=== PATIENT | male | born 1960 | race Caucasian/White ===

== ENCOUNTER 2020-01-21 07:52 | Inpatient (IN) | payer OTHER, SELFPAY ==
[~2020-01-21] VITALS: Ht 177.8 cm; Wt 84.5 kg
[2020-01-21 07:52] VITALS: BP_SYST 178
--- NOTE | 2020-01-21 07:52 | NUR ---
Patient triaged and placed in waiting room. VSS and patient appears in no acute distress at this time. Accompanied by SELF, awaiting available bed, and MD notified of need for MSE.
--- NOTE | 2020-01-21 08:02 | NUR ---
BROUGHT BACK TO BED #3 AND TRIAGED. REPORT GIVEN TO DEE
--- NOTE | 2020-01-21 08:05 | NUR ---
Patient arrived in the ED c/o naveen-umbilical pain with nausea that started 3 days ago. Denied any chest pain or shortness of breath. Denied any fevers, chills, or vomiting. Patient is alert and oriented x4, respirations even and unlabored, speaking in full sentences, and ambulating with a steady gait. VSS, pain level 3/10. Informed of the approximate wait time. Instructed to notify ED staff for any changes in condition or worsening of symptoms while waiting to be seen by an ED provider. Patient verbalized understanding.
[2020-01-21] MEDS ORDERED: NACL 0.9% 1,000 ML IV ONE (08:15)
--- NOTE | 2020-01-21 08:15 | NUR ---
ER Dr. Pederson at bedside examining patient.
--- NOTE | 2020-01-21 08:18 | NUR ---
pyrotechnics press tender at bedside collecting blood specimen as ordered by Dr. Pederson. Patient tolerated the procedure well.
--- NOTE | 2020-01-21 08:22 | NUR ---
X-ray done at bedside as ordered by Dr. Pederson. Patient tolerated the procedure well.
--- NOTE | 2020-01-21 08:31 | NUR ---
Patient ambulated to the bathroom with a steady gait. Urine specimen collected as ordered by Dr. Pederson.
[2020-01-21 08:32] LABS: BASOPHILS # (AUTO) 0.2 K/uL (0.0-0.2); BASOPHILS % (AUTO) 0.8 % (0.0-2.0); EOSINOPHILS % (AUTO) 0.1 % (0.0-4.0); HEMATOCRIT 48.4 % (36-54); HEMOGLOBIN 16.1 g/dL (14.0-18.0); LYMPHOCYTES # (AUTO) 2.3 K/uL (1.0-5.5); LYMPHOCYTES % (AUTO) 11.3 % (20.5-51.5); MEAN CORPUSCULAR HEMOGLOBIN 30 pg (27-31); MEAN CORPUSCULAR HGB CONC 33 % (32-36); MEAN CORPUSCULAR VOLUME 91 fL (79.0-98.0); MONOCYTES # (AUTO) 1.7 K/uL (0.0-1.0); MONOCYTES % (AUTO) 8.2 % (1.7-9.3); NEUTROPHILS # (AUTO) 16.2 K/uL (1.8-7.7); PLATELET COUNT (AUTO) 250 K/uL (130-430); RED BLOOD CELL COUNT(AUTO) 5.35 MIL/uL (4.2-6.2); RED CELL DISTRIBUTION WIDTH 14.3 % (9.0-15.0); WHITE BLOOD COUNT (AUTO) 20.3 K/uL (4.8-10.8)
[2020-01-21 08:48] LABS: CALCIUM 9.8 mg/dL (8.4-11.0); CREATININE 1.07 mg/dL (0.55-1.30); POTASSIUM 4.4 mmol/L (3.5-5.1)
[2020-01-21 09:01] LABS: BILIRUBIN,URINE NEGATIVE (NEGATIVE); BLOOD, URINE NEGATIVE (NEGATIVE); CLARITY/URINE CLEAR (CLEAR); COLOR,URINE YELLOW (YELLOW); GLUCOSE,URINE NEGATIVE (NEGATIVE); KETONES,URINE NEGATIVE (NEGATIVE); LEUKOCYTE ESTERASE ,URINE NEGATIVE (NEGATIVE); NITRITE, URINE NEGATIVE (NEGATIVE); PH,URINE 5.5 (5.0-8.0); PROTEIN URINE NEGATIVE (NEGATIVE); UROBILINOGEN,URINE 0.2 (0.2-1.0)
[2020-01-21 09:01] LABS: NEUTROPHILS % (AUTO) 79.6 % (40.0-70.0)
[2020-01-21 09:03] LABS: ALBUMIN 4.4 g/dL (3.4-4.8); TOTAL BILIRUBIN 1.2 mg/dL (0.0-1.0)
[2020-01-21] MEDS ORDERED: metroNIDAZOLE 500 mg/NS 100 ML IV ONE (09:45)
[2020-01-21] MEDS ORDERED: cefTRIAXone 1 GM IVPB PREMIX 50 ML IV ONE (09:45)
--- NOTE | 2020-01-21 09:51 | NUR ---
ECG done at bedside as ordered by Dr. Pederson. Patient tolerated the procedure well. ER Physician given copy of EKG for review.
[2020-01-21] MEDS: D5/0.45 NS 1,000 ML IV SCH ×2 (12:15→21:24)
--- NOTE | 2020-01-21 13:44 | NUR ---
Report given to Dedra.
--- NOTE | 2020-01-21 13:48 | NUR ---
Patient will be admitted to care of Dr. Gay. Admitted to MS unit. Will go to room 116A. Belongings list completed. Complete and up to date summary report printed. SBAR report to be given at bedside with opportunity for questions.
--- NOTE | 2020-01-21 14:08 | NUR ---
CONSULTATION PAGED/CALLED Reason for Consultation: [] DIVERTICULITIS Person Who was Notified: [] RAS Consulting Physician: [] DR NUNEZ MCAT INSTRUCTOR FOR DR OBRIEN Hurricane Tracker Specialty: [] GI Ordering Physician: [] JUANA MOONEY
[2020-01-21 14:15] VITALS: BP_SYST 151
[2020-01-21] MEDS: metroNIDAZOLE 500 mg/NS 100 ML IV SCH ×2 (14:53→21:24)
[2020-01-21 15:18] VITALS: BP_SYST 139
--- NOTE | 2020-01-21 15:29 | NUR ---
This freelance copywriter received patient at 1420 from ER chief complaint abdominal pain admitting dx Diverticulitis currently has no diet patient stated MD wants him to be NPO for 24hrs will follow up and clairify diet order. Patient A&Ox4 no c/o pain has no past hx of medical diagnosis, currently running on D5W 1/2 NS @100ml/hr and IV antibiotics. Skin assessment showed no sign of skin breakdown or tears has an 18g to left AC patent. Patient brought with him a pair of clothes , black cell phone with white security monitor and pair of black glasses. patient denies pain at the moment currently in bed watching tv with call light in reach will continue to monitor.
--- NOTE | 2020-01-21 16:11 | NUR ---
ATTENDING MD DR FRIAS WAS CALLED, RE: DIET ORDER AND ETC.
[2020-01-21] MEDS ORDERED: MORPHINE 2 MG/ML INJ. SYRINGE IVP PRN (16:30)
[2020-01-21] MEDS ORDERED: NALOXONE HCL 0.4 MG/ML AMP (NARCAN) IVP PRN (16:30)
--- NOTE | 2020-01-21 16:51 | NUR ---
This medical technical writer called in regards to patients diet and pain medications. MD ordered full liquid diet until GI consult , Labs for 01/22/20 CBC w/diff , CMP, MAG, TSH, LIPID PANEL , Morphine 1mg IVPB PRN Q8H, and solu-mederol 40mg IV Q8H. came to do GI consult he ordered to keep full liquid diet see how he tolerates it tonight then advance to soft diet for breakfast.
--- NOTE | 2020-01-21 18:43 | NUR ---
Called MD to clarify steroid order. MD KC order of solu-mederol.
--- NOTE | 2020-01-21 19:38 | NUR ---
Initial note: Received report from dayshift RN. Patient is awake in bed watching TV. No acute distress. Even and unlabored breathing, tolerating room air. IV site patent and benign, receiving IV fluids per MD order. Patient ate 75% of dinner, no complaints of abdominal pain or nausea. Patient states he has slight abdominal discomfort. Call light is with patient. Safety, fall precautions in place. Will continue with plan of care.
[2020-01-21 20:00] VITALS: BP_SYST 140
[2020-01-21] MEDS ORDERED: methylPREDNISolone SOD SUCC 40 MG/ML VIAL IVP SCH (22:00)
--- NOTE | 2020-01-21 22:45 | NUR ---
Rounds: Patient is resting in bed, does not show any acute distress. Respirations are even, unlabored on room air. IV fluids infusing per MD order, no infiltration noted. Call light is with patient. Will continue to monitor.
[2020-01-21] MEDS ORDERED: cloNIDine HCL 0.1 MG TABLET PO PRN (23:00)
[2020-01-21] MEDS: LEVOFLOXACIN 500 MG/D5W 100 ML IV SCH (23:25)
[2020-01-21] MEDS ORDERED: LEVOFLOXACIN 500 MG/D5W 100 ML IV ONE (23:32)
[2020-01-22 00:05] VITALS: BP_SYST 117
--- NOTE | 2020-01-22 00:16 | NUR ---
Rounds: Patient is in bed sleeping. No s/s of acute distress. Tolerating room air. Even and unlabored breathing. IV site receiving IV fluids shows no infiltration. Call light is with patient. Will continue monitoring.
--- NOTE | 2020-01-22 03:21 | NUR ---
Rounds: Patient is asleep. No acute distress. Respirations are even and unlabored on room air. IV fluids infusing well, no infiltration. Call light with patient. Will continue to monitor.
[2020-01-22] MEDS: D5/0.45 NS 1,000 ML IV SCH ×2 (05:09→17:33)
[2020-01-22] MEDS: metroNIDAZOLE 500 mg/NS 100 ML IV SCH ×3 (05:09→21:27)
--- NOTE | 2020-01-22 06:11 | NUR ---
Closing note: Patient is resting comfortably in bed. No acute distress. Even, unlabored breathing. Tolerating room air. IV fluids infusing well. IV site benign and intact. All needs met. Safety, fall precautions observed. Will endorse care to dayshift RN.
[2020-01-22 06:33] LABS: BASOPHILS % (AUTO) 0.4 % (0.0-2.0); EOSINOPHILS # (AUTO) 0.1 K/uL (0.0-0.4); EOSINOPHILS % (AUTO) 0.6 % (0.0-4.0); HEMATOCRIT 40.8 % (36-54); HEMOGLOBIN 13.7 g/dL (14.0-18.0); LYMPHOCYTES # (AUTO) 1.9 K/uL (1.0-5.5); LYMPHOCYTES % (AUTO) 21.8 % (20.5-51.5); MEAN CORPUSCULAR HEMOGLOBIN 30 pg (27-31); MEAN CORPUSCULAR HGB CONC 34 % (32-36); MEAN CORPUSCULAR VOLUME 90 fL (79.0-98.0); MONOCYTES # (AUTO) 1.2 K/uL (0.0-1.0); MONOCYTES % (AUTO) 14.4 % (1.7-9.3); NEUTROPHILS # (AUTO) 5.4 K/uL (1.8-7.7); NEUTROPHILS % (AUTO) 62.8 % (40.0-70.0); PLATELET COUNT (AUTO) 183 K/uL (130-430); RED BLOOD CELL COUNT(AUTO) 4.52 MIL/uL (4.2-6.2); RED CELL DISTRIBUTION WIDTH 14.8 % (9.0-15.0); WHITE BLOOD COUNT (AUTO) 8.6 K/uL (4.8-10.8)
--- NOTE | 2020-01-22 07:15 | NUR ---
opening note received sbar from night RN, patient in bed, respirations even, non labored, bed in low and locked position, call light within reach, bed alarm on
[2020-01-22 08:00] VITALS: BP_SYST 145
--- NOTE | 2020-01-22 08:00 | NUR ---
nurse note obtained vs, patient in bed, respirations even, non labored, bed in low and locked position, denies any pain or discomfort. Administered medication
--- NOTE | 2020-01-22 08:20 | NUR ---
MD ROUNDS DR NUNEZ BEDSIDE EXAMINING PATIENT
[2020-01-22 08:53] LABS: ALBUMIN 3.4 g/dL (3.4-4.8); CALCIUM 8.9 mg/dL (8.4-11.0); CREATININE 0.99 mg/dL (0.55-1.30); POTASSIUM 4.2 mmol/L (3.5-5.1); TOTAL BILIRUBIN 1.4 mg/dL (0.0-1.0)
[2020-01-22 08:54] LABS: THYROID STIMULATING HORMONE 2.44 uIu/mL (0.36-3.74)
[2020-01-22] MEDS ORDERED: PANTOPRAZOLE SODIUM 40 MG/VIAL (PROTONIX) IVP SCH (09:00)
[2020-01-22] MEDS ORDERED: cefTRIAXone 1 GM in D5W 50 ML IV SCH (09:00)
--- NOTE | 2020-01-22 10:00 | NUR ---
NURSE NOTE PATIENT IN BED, RESPIRATIONS EVEN, NON LABORED, BED IN LOW AND LOCKED POSITION, CALL LIGHT WITHIN REACH,
--- NOTE | 2020-01-22 12:00 | NUR ---
nurse note patient in bed, respirations jannet, non labored, bed in low and locked position, call light within reach, denies any pain or discomfort
[2020-01-22 12:50] VITALS: BP_SYST 142
--- NOTE | 2020-01-22 14:50 | NUR ---
nurse note administered medication, patient in bed, respirations even, non labored, bed in low and locked position, call light within reach,
--- NOTE | 2020-01-22 15:56 | NUR ---
nurse note patient in bed, respirations even, non labored, bed in low and locked position, call light within reach, patient denies any pain or discomfort,
[2020-01-22 16:52] VITALS: BP_SYST 129
--- NOTE | 2020-01-22 19:15 | NUR ---
CLOSING NOTE PROVIDED SBAR TO NIGHT RN, PATIENT IN BED, RESPIRATIONS EVEN, NON LABORED, BED IN LOW AND LOCKED POSITION, CALL LIGHT WITHIN REACH, SPOKE WITH DR FRIAS REGARDING PATIENTS REQUEST FOR TYLENOL, NEW ORDERS RECEIVED
[2020-01-22] MEDS ORDERED: ACETAMINOPHEN 500 MG TABLET PO PRN (19:30)
--- NOTE | 2020-01-22 19:33 | NUR ---
Initial note: Received report from dayshift RN. Patient is awake in bed watching TV. No acute distress. Even and unlabored breathing, tolerating room air. IV site patent and benign, receiving IV fluids per MD order. Patient denies increase in abdominal discomfort after eating dinner. Call light is with patient. Safety, fall precautions in place. Will continue with plan of care.
[2020-01-22 20:00] VITALS: BP_SYST 116
--- NOTE | 2020-01-22 21:28 | NUR ---
Pain: Patient complaining of abdominal pain 2/10 and requesting Tylenol. Administered 500 MG Tylenol per MD order. Education provided regarding indications, side effects. Patient verbalized understanding. Call light with patient. Will continue to monitor.
[2020-01-22] MEDS: LEVOFLOXACIN 500 MG/D5W 100 ML IV SCH (22:48)
[2020-01-23 00:06] VITALS: BP_SYST 122
[2020-01-23 01:00] VITALS: BP_SYST 121
[2020-01-23] MEDS: D5/0.45 NS 1,000 ML IV SCH (04:15)
[2020-01-23] MEDS: metroNIDAZOLE 500 mg/NS 100 ML IV SCH (05:07)
--- NOTE | 2020-01-23 06:11 | NUR ---
D/C Patient Patient given medication reconciliation form and D/C instructions. Exit Care provided. Patient verbalized understanding. MD discussed with patient the results and treatment provided. Ambulatory with steady gait for discharge to home. Patient in stable condition, ID band removed. IV catheter removed, intact and dressing applied, no active bleeding. Rx of Levaquin PO and Flagyl PO given. Education provided regarding medications indications and side effects. Patient verbalized understanding. Patient educated on pain management. All belongings sent with patient.
== END 2020-01-23 06:12 | disposition home or self-care (01) | DRG 392 ==
LOC: SED 07:52 → SMU 12:11
PROVIDERS: ADMIT Internal Medicine; ATTEND Internal Medicine
DX: K57.32 Diverticulitis of large intestine without perforation or abscess without bleeding (principal); R65.10 Systemic inflammatory response syndrome (SIRS) of non-infectious origin without acute organ dysfunction; K57.30 Diverticulosis of large intestine without perforation or abscess without bleeding; D72.829 Elevated white blood cell count, unspecified; E78.00 Pure hypercholesterolemia, unspecified; Z20.828 Contact with and (suspected) exposure to other viral communicable diseases
CPT/HCPCS: 36415; 71045; 76376; 80053; 80061; 81003; 82550-TC; 83605; 83690-TC; 83735-TC; 84443-TC; 85025; 87040-TC; 93005; 96361; 96365; 96368; 99285; C9113; J1956; J3490; J7030